=== PATIENT | female | born 1985 | race African-American/Black ===

== ENCOUNTER 2020-08-14 07:59 | Emergency (ER) | payer MEDICAID ==
[~2020-08-14] VITALS: Ht 167.6 cm; Wt 81.8 kg
[2020-08-14 08:04] VITALS: BP 98/69
[2020-08-14] MEDS ORDERED: IBUPROFEN 600 MG TABLET PO ONE (09:30)
== END 2020-08-14 09:47 | disposition home or self-care (01) ==
LOC: EDSEX 08:04 → EMS 08:04
DX: S50.12XA Contusion of left forearm, initial encounter (principal); W22.8XXA Striking against or struck by other objects, initial encounter; Y93.89 Activity, other specified; Y92.89 Other specified places as the place of occurrence of the external cause; Y99.8 Other external cause status
CPT/HCPCS: 73090-TC; 73130-TC; Z7502; Z7610